=== PATIENT | female | born 1955 | race Caucasian/White ===

== ENCOUNTER 2017-10-25 15:50 | Emergency (ER) | payer SELFPAY ==
[~2017-10-25] VITALS: Ht 165.1 cm; Wt 71.7 kg
[2017-10-25 15:54] VITALS: BP 147/81
[2017-10-25] MEDS ORDERED: LISI-170 PO (16:21)
[2017-10-25] MEDS ORDERED: LISI-167 PO (16:21)
[2017-10-25] MEDS ORDERED: SULF1TAB24 PO (16:21)
== END 2017-10-25 16:50 | disposition home or self-care (01) ==
LOC: ED 16:20
DX: L02.212 Cutaneous abscess of back [any part, except buttock and flank] (principal); R11.0 Nausea; I10 Essential (primary) hypertension
CPT/HCPCS: 99283

== ENCOUNTER 2018-04-01 22:36 | Emergency (ER) | payer MEDICARE ==
[~2018-04-01] VITALS: Ht 165.1 cm; Wt 72.1 kg
[~2018-04-01 22:36] MED LIST: LISI-167 PO; LISI-170 PO; SULF1TAB24 PO
[2018-04-01 22:44] VITALS: BP 190/97
[2018-04-01] MEDS ORDERED: MAALOX/HYOSCYAMINE/LIDOCAINE 45 ML BTL PO ONE (23:30)
[2018-04-01 23:58] LABS: BASOPHILS # (AUTO) 0.02 x10^3/uL (0-0.1); BASOPHILS % (AUTO) 0 % (0-1); EOSINOPHILS # (AUTO) 0.08 x10^3/uL (0-0.4); EOSINOPHILS % (AUTO) 1 % (1-7); LYMPHOCYTES # (AUTO) 2.01 x10^3/uL (1-3.4); LYMPHOCYTES % (AUTO) 33 % (22-44); MD NO; MEAN CORPUSCULAR HEMOGLOBIN 30.7 pg (27.0-34.8); MEAN CORPUSCULAR HGB CONC 33.7 g/dL (32.4-35.8); MEAN CORPUSCULAR VOLUME 91.1 fL (80-100); MEAN PLATELET VOLUME 7.1 fL (7.4-10.4); MONOCYTES # (AUTO) 0.34 x10^3/uL (0.2-0.8); MONOCYTES % (AUTO) 6 % (2-9); NEUTROPHILS # (AUTO) 3.63 x10^3/uL (1.8-6.8); NEUTROPHILS % (AUTO) 60 % (42-75); PLATELET COUNT 358 x10^3/uL (130-400); RED BLOOD COUNT 4.84 x10^6/uL (3.82-5.3); RED CELL DISTRIBUTION WIDTH 12.9 % (9.6-15.2)
[2018-04-02 00:07] LABS: INTERNATIONAL NORMALIZED RATIO 1.06 (0.93-1.1); PROTHROMBIN TIME 11.2 Seconds (9.6-11.5)
[2018-04-02 00:09] LABS: ALANINE AMINOTRANSFERASE 28 U/L (12-78); ANION GAP 9 mmol/L (5-15); CALCIUM 8.7 mg/dL (8.5-10.1); CHLORIDE 97 mmol/L (98-107); CREATININE 0.63 mg/dL (0.55-1.02)
[2018-04-02 00:13] LABS: ALKALINE PHOSPHATASE 67 U/L (45-117); BILIRUBIN,TOTAL 0.9 mg/dL (0.2-1.0); TOTAL PROTEIN 7.5 g/dL (6.4-8.2); TROPONIN I < 0.015 ng/mL (0.000-0.045)
--- NOTE | 2018-04-02 00:13 | NUR ---
PT IN GOWN AND ON MONITOR. IV STARTED AND BLOOD TO LAB. PT AWAITING CTA.
[2018-04-02] MEDS ORDERED: MAALOX/HYOSCYAMINE/LIDOCAINE 45 ML BTL ONE (00:17)
[2018-04-02] MEDS ORDERED: OMNIPAQUE 350 MG/ML, 100ML BOTTLE ONE (00:31)
--- NOTE | 2018-04-02 00:45 | NUR ---
PT BACK FROM CTA AND MEDICATED ORDERED AWAITING RESULTS AND ERP RECHECK
== END 2018-04-02 01:33 | disposition home or self-care (01) ==
LOC: ED 23:59
DX: R07.89 Other chest pain (principal); Q39.6 Congenital diverticulum of esophagus; E78.5 Hyperlipidemia, unspecified
CPT/HCPCS: 36415; 71045; 71275; 80053; 83880; 84484; 85025; 85610; 85730; 93005; 99284; Q9967

== ENCOUNTER → 2018-08-18 | Outpatient (CLI) | payer MEDICARE | END | disposition home or self-care (01) | LOC: CFH 14:33 | PROVIDERS: ATTEND Family Medicine | DX: Z12.31 Encounter for screening mammogram for malignant neoplasm of breast (principal) | CPT/HCPCS: 77063; 77067 ==